=== PATIENT | male | born 1960 | race Hispanic/Latino ===

== ENCOUNTER 2017-07-08 16:56 | Emergency (ER) | payer BC ==
[~2017-07-08] VITALS: Ht 177.8 cm; Wt 136.5 kg
[~2017-07-08 16:56] MED LIST: ACTOS; ASPIRIN LOW DOS81 MG PO; ATORVASTATIN CA10 MG PO; DIOVAN; DIOVAN160 MG PO; GABAPENTIN100 MG PO; GLIPIZIDE; NOVOLIN 70100 UNITS/ SC; Z.2.METFORMIN HCL500 PO
[2017-07-08] MEDS ORDERED: LIDOCAINE HCL 1% LOCAL INJ 20 ML VIAL INJ ONE (17:15)
[2017-07-08] MEDS ORDERED: CEFAZOLIN SOD 1 GM in WATER STERILE 10ML VIAL 10 ML IV SCH (18:15)
[2017-07-08] MEDS ORDERED: CEFAZOLIN SOD 1 GM VIAL IV ONE (18:30)
--- NOTE | 2017-07-08 18:42 | Diagnostic Imaging Report ---
PROCEDURE:HAND RIGHT 3 VIEWS AP \T\ LAT COMPARISON:None. INDICATIONS:right ring finger laceration FINDINGS: Normal mineralization. No acute, displaced fracture or dislocation. No lytic or blastic lesion. No cortical erosion or destruction. Joint spaces are relatively well-preserved. No soft tissue defect is identified. CONCLUSION: No acute bony abnormality. No soft tissue defect is identified. Can Acevedo M.D. Dictated by: Can Acevedo M.D. on 07/08/2017 at 18:43 Electronically approved by: Can Acevedo M.D. on 07/08/2017 at 18:43
== END 2017-07-08 19:27 | disposition home or self-care (01) ==
LOC: ER 17:06
DX: S61.224A Laceration with foreign body of right ring finger without damage to nail, initial encounter (principal); W45.8XXA Other foreign body or object entering through skin, initial encounter
CPT/HCPCS: 12001; 73130; 99283; J0690; J2001

== ENCOUNTER 2024-05-23 17:37 | Emergency (ER) | payer BC, OTHER ==
[~2024-05-23] VITALS: Ht 175.3 cm; Wt 129.3 kg
[2024-05-23] MEDS ORDERED: TYLENOL325 MG PO (18:40)
[2024-05-23] MEDS ORDERED: IBUPROFEN600 MG PO (18:40)
[2024-05-23] MEDS: ACETAMINOPHEN 325 MG TAB PO ONE (19:58)
[2024-05-23] MEDS: KETOROLAC TROMETHAMINE 30 MG/ML VIAL IM ONE (19:58)
[2024-05-23 20:01] VITALS: PULSE 75; RESP 18; TEMP 98.1
[2024-05-23 20:07] VITALS: BP 136/76; PULSE 75; RESP 18; TEMP 98.1; O2SAT 95
== END 2024-05-23 20:10 | disposition home or self-care (01) ==
LOC: FSED 17:45
DX: R07.89 Other chest pain (principal); S22.31XA Fracture of one rib, right side, initial encounter for closed fracture; K80.20 Calculus of gallbladder without cholecystitis without obstruction; I10 Essential (primary) hypertension; E11.65 Type 2 diabetes mellitus with hyperglycemia; E11.40 Type 2 diabetes mellitus with diabetic neuropathy, unspecified; E78.5 Hyperlipidemia, unspecified; M54.9 Dorsalgia, unspecified; G89.29 Other chronic pain; H40.9 Unspecified glaucoma
CPT/HCPCS: 71250; 80053; 85025; 85610; 96372; 99284; J1885